=== PATIENT | female | born 1985 | race Caucasian/White ===

== ENCOUNTER 2018-12-18 11:19 | Inpatient (IN) | payer OTHER ==
[~2018-12-18] VITALS: Ht 160 cm; Wt 167.0 kg
[2019-01-08] MEDS ORDERED: PRENATAL FORMU1 EAC1 PO (01:03)
[2019-01-08] MEDS ORDERED: ZANTAC 7575 MG PO (01:03)
[2019-01-10] MEDS ORDERED: NAPR500T14 PO (09:00)
== END 2019-01-10 18:41 | disposition home or self-care (01) | DRG 768 ==
LOC: LDR 01-07 17:30 → OB/GYN 01-09 03:16
PROVIDERS: ADMIT Obstetrics & Gynecology
PROC: 10E0XZZ Delivery of Products of Conception, External Approach (ICD-10-PCS; principal; 2019-01-07)
PROC: 0DQR0ZZ Repair Anal Sphincter, Open Approach (ICD-10-PCS; 2019-01-07)
PROC: 3E0P7VZ Introduction of Hormone into Female Reproductive, Via Natural or Artificial Opening (ICD-10-PCS; 2019-01-07)
PROC: 3E033VJ Introduction of Other Hormone into Peripheral Vein, Percutaneous Approach (ICD-10-PCS; 2019-01-07)
PROC: 4A1HXCZ Monitoring of Products of Conception, Cardiac Rate, External Approach (ICD-10-PCS; 2019-01-07)
DX: O70.21 Third degree perineal laceration during delivery, IIIa (principal); Z37.0 Single live birth; O41.03X0 Oligohydramnios, third trimester, not applicable or unspecified; Z3A.37 37 weeks gestation of pregnancy

== ENCOUNTER 2022-04-19 14:11 | Outpatient (CLI) | payer OTHER ==
[~2022-04-19 14:11] MED LIST: NAPR500T14 PO; PRENATAL FORMU1 EAC1 PO; ZANTAC 7575 MG PO
== END 2022-04-19 16:15 | disposition home or self-care (01) ==
LOC: PRENATAL 14:11
PROVIDERS: ATTEND Obstetrics & Gynecology Maternal & Fetal Medicine
DX: O35.0XX0 Maternal care for (suspected) central nervous system malformation in fetus, not applicable or unspecified (principal); O35.3XX0 Maternal care for (suspected) damage to fetus from viral disease in mother, not applicable or unspecified; O09.529 Supervision of elderly multigravida, unspecified trimester; Z3A.21 21 weeks gestation of pregnancy

== ENCOUNTER 2022-05-16 11:23 | Outpatient (CLI) | payer OTHER ==
[~2022-05-16] VITALS: Ht 160 cm; Wt 74.4 kg
== END 2022-05-16 19:48 | disposition home or self-care (01) ==
LOC: OBS/DEL 11:23
PROVIDERS: ATTEND Obstetrics & Gynecology
DX: O23.42 Unspecified infection of urinary tract in pregnancy, second trimester (principal); N39.0 Urinary tract infection, site not specified; Z3A.24 24 weeks gestation of pregnancy; U07.1 COVID-19

== ENCOUNTER 2022-07-05 09:30 | Outpatient (CLI) | payer OTHER | END 2022-07-05 10:45 | disposition home or self-care (01) | LOC: PRENATAL 09:30 | PROVIDERS: ATTEND Obstetrics & Gynecology Maternal & Fetal Medicine | DX: O26.849 Uterine size-date discrepancy, unspecified trimester (principal); O09.529 Supervision of elderly multigravida, unspecified trimester; Z3A.32 32 weeks gestation of pregnancy ==